=== PATIENT | male | born 2000 | race Caucasian/White ===

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

== ENCOUNTER 2021-11-16 21:13 | Emergency (ER) | payer OTHER ==
[~2021-11-16] VITALS: Ht 175.3 cm; Wt 79.4 kg
[2021-11-16] MEDS ORDERED: ZITHROMAX500 MG PO (22:39)
[2021-11-16] MEDS ORDERED: DOLOGEN CAPLET1 EACH PO (22:39)
== END 2021-11-16 22:46 | disposition home or self-care (01) ==
LOC: ER 21:13
DX: B34.9 Viral infection, unspecified (principal); R50.9 Fever, unspecified; Z20.822 Contact with and (suspected) exposure to COVID-19

== ENCOUNTER 2021-11-18 12:44 | Emergency (ER) | payer OTHER ==
[~2021-11-18] VITALS: Ht 152.4 cm; Wt 77.1 kg
[~2021-11-18 12:44] MED LIST changes: +DOLOGEN CAPLET1 EACH PO; +ZITHROMAX500 MG PO
== END 2021-11-18 15:17 | disposition home or self-care (01) ==
LOC: ER 12:44
DX: R19.7 Diarrhea, unspecified (principal)

== ENCOUNTER 2023-07-16 13:28 | Emergency (ER) | payer OTHER ==
[~2023-07-16] VITALS: Ht 172.7 cm; Wt 76.7 kg
[2023-07-16 15:34] LABS: HEMOGLOBIN 13.6 g/dL (13-16.00); MEAN CELL VOLUME 81.3 fL (80.0-100.00); MEAN CORPUSCULAR HGB CONC 33.2 g/dl (32.0-36.0); PLATELET COUNT 284 K/uL (150-450); RED BLOOD COUNT 5.05 M/uL (4.00-6.00); RED CELL DISTRIBUTION WIDTH 14.4 % (11.5-14.5)
[2023-07-16 16:04] LABS: ALBUMIN 3.9 gm/dL (3.4-5.0); BILIRUBIN TOTAL 0.31 mg/dL (0.3-1.2); CALCIUM 9.2 mg/dL (8.5-10.1); CREATININE SERUM 0.93 mg/dL (0.70-1.30); GFR 99.82; GLOBULINA 3.6 G/DL (2.4-3.5); POTASSIUM 3.88 mEq/L (3.5-5.1); TOTAL PROTEIN 7.5 gm/dL (6.4-8.2)
[2023-07-16] MEDS ORDERED: ZOFRAN8 MG PO (19:36)
[2023-07-16] MEDS ORDERED: PEPCID AC20 MG PO (19:36)
[2023-07-16] MEDS ORDERED: INTESTINEX680 M1 PO (19:36)
== END 2023-07-16 19:53 | disposition home or self-care (01) ==
LOC: ER 13:28
PROVIDERS: General Practice
DX: K52.89 Other specified noninfective gastroenteritis and colitis (principal); R10.13 Epigastric pain